=== PATIENT | female | born 1975 | race Caucasian/White ===

== ENCOUNTER 2018-08-02 17:42 | Emergency (ER) | payer OTHER ==
[~2018-08-02] VITALS: Ht 170.2 cm; Wt 127.0 kg
[~2018-08-02 17:42] MED LIST: ALPR.5 PO; AMOX500 PO; CEPH500 PO; CYCL10 PO; Cleocin HCl150 MG PO; Crutch1 EACH MISC; HYDACE5 PO; IBUP200; IBUP400 PO; IBUP600 PO; IBUP800 PO; METH10 PO; MULVITMINE; NAPR500 PO; Norco 5-325 Ta1 EACH PO; ONDA4 PO; OXYACE5T PO; PARO10 PO; PENVK250 PO; PENVK500 PO; Percocet 5-3251 EACH PO; RXHYDACE PO; RXPENVK250 PO; SERT50; SULTRIDS PO; TRAM50 PO; Ultram50 MG PO; VENL75ER; Zofran Odt4 MG SL
[2018-08-02] MEDS ORDERED: Amoxicillin500 MG PO (17:52)
== END 2018-08-02 18:06 | disposition home or self-care (01) ==
LOC: ER 17:42
DX: K02.9 Dental caries, unspecified (principal); K03.81 Cracked tooth; F17.210 Nicotine dependence, cigarettes, uncomplicated
CPT/HCPCS: 99282

== ENCOUNTER 2019-10-21 07:22 | Emergency (ER) | payer OTHER ==
[~2019-10-21 07:22] MED LIST changes: +Amoxicillin500 MG PO
== END 2019-10-21 07:30 | disposition left against medical advice (07) ==
LOC: ER 07:22
DX: Z53.21 Procedure and treatment not carried out due to patient leaving prior to being seen by health care provider (principal)

== ENCOUNTER → 2020-01-09 | Outpatient (CLI) | payer OTHER ==
[2020-01-13 14:07] LABS: HPV 16 Negative (Negative); HPV 18 Negative (Negative); HPV OTHER HR TYPES Negative (Negative)
== END | disposition home or self-care (01) ==
LOC: LAB SHORT 12:56 → LAB 12:56
PROVIDERS: Physician Assistant
DX: Z01.419 Encounter for gynecological examination (general) (routine) without abnormal findings (principal)
CPT/HCPCS: 87624; G0123

== ENCOUNTER → 2022-01-26 | Outpatient (CLI) | payer OTHER ==
[2022-01-31 10:32] LABS: Stool Occult Bld Immuno 1 Negative (NEGATIVE)
== END | disposition home or self-care (01) ==
LOC: LAB SHORT 12:00 → LAB 12:00
PROVIDERS: Physician Assistant
DX: Z12.11 Encounter for screening for malignant neoplasm of colon (principal); B18.2 Chronic viral hepatitis C
CPT/HCPCS: G0328

== ENCOUNTER → 2023-03-23 | Outpatient (CLI) | payer OTHER | LOC: LAB SHORT 16:03 → LAB 16:03 | DX: R35.0 Frequency of micturition (principal) | CPT/HCPCS: 87077; 87086; 87186 ==